=== PATIENT | female | born 1965 | race Caucasian/White ===

== ENCOUNTER 2022-07-02 11:34 | Emergency (ER) | payer MEDICAID ==
[~2022-07-02] VITALS: Ht 157.5 cm; Wt 68.2 kg
[2022-07-02] MEDS ORDERED: LETR2.5 PO ×2 (11:54→13:16)
[2022-07-02] MEDS ORDERED: CITA-144 PO ×2 (11:54→13:17)
[2022-07-02] MEDS ORDERED: ATOR40TA28 PO ×2 (11:54→13:16)
[2022-07-02] MEDS ORDERED: PANT-31 PO ×2 (11:54→13:17)
[2022-07-02] MEDS ORDERED: ASPI-1444 PO (11:54)
[2022-07-02 11:55] VITALS: BP 128/78
== END 2022-07-02 13:30 | disposition home or self-care (01) ==
LOC: EMS 11:37
DX: F32.A Depression, unspecified (principal); C50.919 Malignant neoplasm of unspecified site of unspecified female breast; I10 Essential (primary) hypertension; K21.9 Gastro-esophageal reflux disease without esophagitis; E78.00 Pure hypercholesterolemia, unspecified; Z76.0 Encounter for issue of repeat prescription
CPT/HCPCS: 99281; Z7502